=== PATIENT | female | born 1995 | race Caucasian/White ===

== ENCOUNTER 2019-06-04 20:20 | Emergency (ER) | payer OTHER ==
[~2019-06-04] VITALS: Ht 172.7 cm; Wt 90.7 kg
[~2019-06-04 20:20] MED LIST: AUGMENTIN 875875 M1 PO; AZITHROMYCIN 2250 MG PO; CLONAZEPAM 1 MG1 M1 PO; CORTISPORIN CR7.5 G1 TOP; CORTIZONE-10 PL28 GM TP; DELTASONE20 MG PO; DOXYCYCLINE 10100 MG PO; FLAGYL500 MG PO; HYDROXYZINE HCL25 M2 PO; MACROBID 100 M100 M2 PO; MUCINEX TA600 MG/TA2 PO; ONDANSETRON HCL4 M2 PO; PHENERGAN 25 MG25 M1 PO; PRENATAL 1 PLU1 EACH PO; TESSALON PERLE100 MG PO; TRIAMCINOLONE A80 G2 TOP; TRINATE TABLET1 TAB PO; VENTOLIN HFA 1818 GM INH; VENTOLIN HFA INH8 GM IH; WELLBUTRIN SR150 MG PO; ZANTAC 150MG T150 MG PO; ZPAK PO
[2019-06-04] MEDS ORDERED: IBUPROFEN 800800 M1 PO (22:38)
[2019-06-04] MEDS ORDERED: ZANAFLEX4 MG PO (22:38)
[2019-06-04 23:00] VITALS: BP 121/79
== END 2019-06-04 23:01 | disposition home or self-care (01) ==
LOC: M.ERS 20:20
DX: S16.1XXA Strain of muscle, fascia and tendon at neck level, initial encounter (principal); S00.81XA Abrasion of other part of head, initial encounter; M25.512 Pain in left shoulder; F41.9 Anxiety disorder, unspecified; F32.9 Major depressive disorder, single episode, unspecified; F17.210 Nicotine dependence, cigarettes, uncomplicated; Z87.01 Personal history of pneumonia (recurrent); V89.2XXA Person injured in unspecified motor-vehicle accident, traffic, initial encounter; Y93.89 Activity, other specified; Y92.89 Other specified places as the place of occurrence of the external cause; Y99.8 Other external cause status